=== PATIENT | male | born 1980 | race Caucasian/White ===

== ENCOUNTER 2025-02-22 20:10 | Emergency (ER) | payer OTHER, SELFPAY ==
--- NOTE | ~2025-02-22 | CT_ITS ---
CT brain wo con Ordering provider: Benjamin Allen MD History: 44 years Male with . confusion . Comparison: None. Technique: CT of the head without contrast. Radiation reduction technique utilized.The dose-length pr oduct was 681 mGy-cm. FINDINGS: BRAIN PARENCHYMA AND CSF SPACES: No midline shift, mass effect or hemorrhage. The brain parenchyma a nd CSF spaces are otherwise normal. VISUALIZED PARANASAL SINUSES: Well aerated. MASTOIDS: Well aerated. BONES: The bones appear intact. SOFT TISSUES: Visualized nasopharynx is normal. Superficial soft tissues are normal. IMPRESSION: No acute intracranial findings. Reviewed, dictated and finalized at location A.
[2025-02-22 20:14] VITALS: BP 121/83; PULSE 73; RESP 15; TEMP 36.6; O2SAT 100
--- NOTE | 2025-02-22 21:12 | ED.GENADULT ---
HPI - General Adult General Chief complaint: Headache Stated complaint: Headaches/dizziness x 2weeks, vision changes Time Seen by Provider: 02/22/25 21:00 Source: patient and family Mode of arrival: ambulatory Limitations: no limitations History of Present Illness HPI narrative: 44-year-old here with a complains of dizziness mostly in the morning for last several months associated with mild memory loss and also has tingling sensation at the tips of his fingers. Patient states that he has not seen any doctor in the last 15-20 years. Is not quite sure whether he has diabetes or any other medical issues. His was at the bedside states that she they are unable to get into a primary care doctor. Also complains of mild headache. He denies any chest pain or shortness of breath. Onset (ago): month(s) (6) Location: head Severity: mild Relieving factors: none Exacerbating factors: none Associated symptoms: confusion Related Data Allergies Allergy/AdvReac Type Severity Reaction Status Date / Time No Known Allergies Allergy Verified 02/22/25 20:13 Review of Systems Review of Systems: All systems reviewed & are unremarkable except as noted in HPI and below Constitutional: Constitutional: Reports no additional constitutional complaints Eyes: Eyes: Reports no additional eye complaints ENT: Reports system reviewed and no additional complaints, except as documented Cardiovascular: Cardiovascular: Reports no additional cardiovascular complaints Respiratory: Respiratory: Reports no additional respiratory complaints Gastrointestinal: Gastrointestinal: Reports no additional gastrointestinal complaints Musculoskeletal: Musculoskeletal: Reports no additional musculoskeletal complaints Neurologic: Reports as per HPI Psychiatric: Psychiatric: Reports no additional psychiatric complaints Endocrine: Endocrine: Reports no additional endocrine complaints Exam Narrative: GENERAL: Well-appearing, well-nourished, and in no acute distress. HEAD: Normocephalic, atraumatic. EYES: PERRLA and EOMI. ENT: Nares clear, no rhinorrhea or epistaxis. Mucous membranes moist. NECK: Supple. CHEST: Clear to auscultation. No respiratory distress. HEART: Regular rate and rhythm. No murmur heard. Normal peripheral pulses. ABDOMEN: Soft, nontender, nondistended, normal active bowel sounds. EXTREMITIES: Normal range of motion. No edema. SKIN: Warm, dry, no rash. NEURO: No focal deficits. Alert and oriented x3. PSYCH: Normal mood and affect. Course Course Emergency Course: Notified patient and his about the lab work, CT findings cause of his dizziness is unknown recommended him to follow up with his primary doctor or neurologist. Vital Signs Vital signs: Vital Signs Temperature 36.6 C 02/22/25 20:14 Pulse Rate 73 02/22/25 20:14 Respiratory Rate 15 02/22/25 20:14 Blood Pressure 121/83 02/22/25 20:14 Pulse Oximetry 100 02/22/25 20:14 Oxygen Delivery Room Air 02/22/25 20:14 Temperature 36.6 C 02/22/25 20:14 Pulse Rate 73 02/22/25 20:14 Respiratory Rate 15 02/22/25 20:14 Blood Pressure 121/83 02/22/25 20:14 Pulse Oximetry 100 02/22/25 20:14 Oxygen Delivery Room Air 02/22/25 20:14 Medical Decision Making Vital Signs Vital Signs: Vital Signs Temperature 36.6 C 02/22/25 20:14 Pulse Rate 73 02/22/25 20:14 Respiratory Rate 15 02/22/25 20:14 Blood Pressure 121/83 02/22/25 20:14 Pulse Oximetry 100 02/22/25 20:14 Oxygen Delivery Room Air 02/22/25 20:14 Temperature 36.6 C 02/22/25 20:14 Pulse Rate 73 02/22/25 20:14 Respiratory Rate 15 02/22/25 20:14 Blood Pressure 121/83 02/22/25 20:14 Pulse Oximetry 100 02/22/25 20:14 Oxygen Delivery Room Air 02/22/25 20:14 Lab Data Lab results reviewed: Yes I reviewed the patient's lab results. Imaging Data Radiologist's impression: ITS Impressions Head CT 02/22/25 21:45 IMPRESSION: No acute intracranial findings. Discharge Plan Discharge Clinical Impression: Dizziness Patient Disposition: Home, Self-Care Condition: Stable Instructions: Dizziness (ED) Additional Instructions: Recommended you to follow-up with the primary doctor or our neurologist. Patient Language: [place]ian Follow-up/Referrals: PHYSICIAN,[employer] [Primary Care Provider] - Stefano Jeffrey MD [Physician] - Time of Disposition: 22:05
[2025-02-22 21:18] VITALS: BP 114/78; PULSE 65; RESP 20; O2SAT 98
[2025-02-22 21:47] LABS: Basophils Absolute Auto 0.1 K/mm3 (0.0-0.1); Basophils Percent Auto 0.6 % (0.2-1.2); Eosinophils Absolute Auto 0.3 K/mm3 (0-0.3); Hematocrit 44.3 % (42.0-52.0); Hemoglobin 14.6 g/dL (14.0-18.0); Immature Granulocyte Absolute 0.03 K/mm3 (0.00-0.031); Immature Granulocyte Percent A 0.2 % (0-0.5); Lymphocytes Absolute Auto 3.62 K/mm3 (0.9-3.2); Lymphocytes Percent Auto 29.5 % (18.3-44.2); Mean Corpuscular Hemoglobin 30.2 pg (26-34); Mean Corpuscular Volume 91.7 fl (80-100); Mean Platelet Volume 9.2 fl (7.4-10.4); Monocytes Absolute Auto 0.7 K/mm3 (0.1-0.6); Monocytes Percent Auto 5.6 % (2.6-8.5); Neutrophils Absolute Auto 7.6 K/mm3 (1.3-6.7); Neutrophils Percent Auto 62.1 % (45.5-73.1); Platelet Count Result 400 k/mm3 (150-375); Red Blood Count 4.83 M/mm3 (4.6-6.20); Red Cell Distribution Width 14.6 % (11.5-14.5); White Blood Count 12.3 K/mm3 (4.5-10.0)
[2025-02-22 21:56] LABS: Alanine Aminotransferase 18 U/L (6-50); Albumin Level 4.3 g/dL (3.5-5.1); Alkaline Phosphatase 60 U/L (38-126); Anion Gap 8 mmol/L (4-12); Aspartate Amino Transferase 17 U/L (17-59); Bilirubin,Total 0.4 mg/dL (0.2-1.3); Blood Urea Nitrogen 14 mg/dL (9-20); Calcium 9.2 mg/dL (8.4-10.2); Carbon Dioxide 26 mmol/L (22-30); Chloride 106 mmol/L (98-107); Estimated CRCL calculation 84 ml/min; Estimated Glomerular Filt Rate > 60; Glucose 80 mg/dL (65-110); Potassium 3.9 mmol/L (3.4-5.0); Sodium 140 mmol/L (137-145)
--- NOTE | 2025-02-22 23:19 | PC.NURSE ---
Staff went into room to obtain repeat troponin and EKG ordered. Pt not in room and IV in trash. Dr Chaudhry had pt set up for d/c, papers printed, but did not have the pt marked as discharge on tracker. Assumed pt left after Dr Chaudhry discussed results with pt without dc papers.
== END 2025-02-22 23:19 | disposition home or self-care (01) ==
PROVIDERS: Emergency Provider Family Medicine
DX: R42 Dizziness and giddiness (principal)
CPT/HCPCS: 36415; 70450; 80053; 85025; 99284